=== PATIENT | female | born 1990 | race African-American/Black ===

== ENCOUNTER 2023-01-27 12:50 | Emergency (ER) | payer MEDICAID ==
--- NOTE | 2023-01-27 13:50 | ED Chest Pain ---
General Chief Complaint: Chest Pain Stated Complaint: HEADACHE | COUGH | CHEST DISCOMFORT Nursing Triage Note: PT AMB TO [facility] WITH HER 4 CHILDREN WITH CC OF HEADACHE AND CP X4 MONTHS. PT RECENTLY WAS TOLD THAT HER HOUSE HAD MOLD AND WANTED EVALUATED. Source: patient Exam Limitations: no limitations History of Present Illness Date Seen by Provider: Jan 27, 2023 Time Seen by Provider: 13:45 Initial Comments Patient is a 33-year-old female who presents ED for chest pain and headache. She reports headache over the past 2 to 3 weeks. Headache is generalized descri bed as dull and achy. Denies taking medication. Denies worst headache of her life. She has no focal neural deficits such as unilateral muscle weakness, sensory changes, facial droop, visual visual changes. This headache occurs while at home. She is concerned for mold at home. She seems to get relief when she is outside.. Patient also reports substernal sharp chest pain radiation to right breast intermittently over the past 4 months. Described as sharp. She had some pain yesterday but none today. Seems to be worse with deep inspiration. She does wake up with some pain and discomfort in the pastt. History of acid reflux. She denies vomiting, fever, chills, visual changes, shortness of breath unilateral muscle weakness or sensory changes, history of hypertension, diabetes or high cholesterol. She denies of any current chest pain at this time Allergies and Home Medications Patient Home Medication List Home Medication List Reviewed: Yes Naproxen (Naproxen) 500 Mg Tablet, 500 MG PO Q12H Prescribed by: NANETTE OLIVA on 01/27/23 2926 Review of Systems Review of Systems Constitutional: No chills, No diaphoresis, No malaise, No weakness EENTM: No Eye Pain Respiratory: Denies Cough Cardiovascular: Chest Pain; Denies Edema Gastrointestinal: Denies Abdominal Pain, Denies Diarrhea, Denies Nausea, Denies Vomiting Genitourinary: Denies Burning, Denies Discharge Musculoskeletal: No back pain Skin: No change in color, No change in hair/nails Psychiatric/Neurological: Headache Past Nrserck-Bdrmni-Bfjscy Hx Patient Social History Tobacco Use?: Yes Tobacco type used: Cigarettes Substance use?: No Alcohol Use?: No Physical Exam Vital Signs Vital Signs - First Documented 01/27/23 12:57 Temp 36.4 Pulse 76 B/P (MAP) 121/86 (98) Pulse Ox 96 O2 Delivery Room Air Capillary Refill : Height, Weight, BMI Height: '" Weight: lbs. oz. kg; BMI Method: General Appearance: No Apparent Distress, WD/WN HEENT: PERRL/EOMI, TMs Normal, Normal ENT Inspection, Pharynx Normal Neck: Full Range of Motion, Normal Inspection, Supple Respiratory: Chest Non Tender, Lungs Clear, Normal Breath Sounds, No Accessory Muscle Use, No Respiratory Distress Cardiovascular: Regular Rate, Rhythm, No Edema, No Gallop, No JVD, No Murmur Gastrointestinal: Normal Bowel Sounds, No Organomegaly, No Pulsatile Mass, Non Tender Extremity: Normal Capillary Refill, Normal Inspection, Normal Range of Motion, Non Tender Neurologic/Psychiatric: Alert, Oriented x3, No Motor/Sensory Deficits, Normal Mood/Affect, loan approver II-XII Norm as Tested Skin: Normal Color, Warm/Dry Progress/Results/Core Measures Results/Orders My Orders Orders - CHU EARL PA Ekg Tracing (01/27/23 13:39) Chest 1 View, Ap/Pa Only (01/27/23 13:39) Vital Signs/I&O 01/27/23 01/27/23 12:57 14:18 Temp 36.4 Pulse 76 76 B/P (MAP) 121/86 (98) 121/86 Pulse Ox 96 96 O2 Delivery Room Air Room Air Blood Pressure Mean: 98 Comment Sinus rhythm, 72 bpm, QRS duration 79 MS, QTc 431 MS Departure Communication (PCP) Patient in no acute distress. Intermittent sharp substernal chest pain over the past 4 months. She does wake up with pain but denies of any associated pain with eating that she knows of. Appears to be intermittent. Patient has no cough, shortness of breath, visual changes, no known cardiac history. Low risk factors. Heart score of 1. No family history of sudden cardiac . Patient without any current chest pain. Did offer EKG to look for any ischemic changes, arrhythmia. Chest x-ray to rule out pneumonia, pneumothorax, mass. She agrees. EKG showed normal sinus rhythm without evidence of arrhythmia. Chest x-ray unremarkable. If waking up with pain may consider a PPI, antiacid as this could be related to GERD. Avoid fatty foods. Elevate head at night. Pain appears to be sharp with deep inspiration. No evidence of pericarditis with diffuse ST elevation on EKG. Discussed outpatient follow-up with cardiac work-up. This does not appear cardiac etiology. Discussed other potential etiologies such as pleurisy. Further work-up as needed. Naproxen for head pain. She has no neurological red flag findings suggesting emergent CT scan. Stable vital signs. Impression Primary Impression: Chest pain Disposition: HOME, SELF-CARE Condition: Stable Departure-Patient Inst. Decision time for Depature: 13:47 Ref[place]: [facility] [place] Primary Care Physician CASH LINN MD Patient Instructions: Chest Pain Scripts Naproxen (Naproxen) 500 Mg Tablet 500 MG PO Q12H, #20 TAB Prov: CHU EARL 01/27/23 CHU EARL Jan 27, 2023 13:50
[2023-01-27] MEDS ORDERED: NAPR-915 PO (14:16)
--- NOTE | 2023-01-27 14:16 | Diagnostic Imaging Report ---
EXAMINATION: Chest 1 view HISTORY: Cough. Headache. COMPARISON: None available. FINDINGS: The lung volumes are normal. No focal consolidation is seen. No large pleural effusion or pneumothorax is seen. The cardiomediastinal silhouette is normal in size and contour. No acute osseous abnormality is seen. IMPRESSION: 1. No acute pleuroparenchymal process. Dictated by: Dictated on workstation # [id number]
[2023-01-27 14:18] VITALS: BP 121/86
== END 2023-01-27 14:18 | disposition home or self-care (01) ==
LOC: ER 12:53
DX: R07.2 Precordial pain (principal); R51.9 Headache, unspecified; F17.210 Nicotine dependence, cigarettes, uncomplicated
CPT/HCPCS: 71045; 93005